=== PATIENT | male | born 2000 | race Caucasian/White ===

== ENCOUNTER 2022-09-24 21:25 | Emergency (ER) | payer MEDICAID ==
[~2022-09-24] VITALS: Ht 195.6 cm; Wt 100.0 kg
[2022-09-24 21:50] VITALS: BP 121/63
--- NOTE | 2022-09-24 22:22 | NUR ---
pts. girlfriends number is [phone]. pt does not have his phone anymore.
== END 2022-09-25 01:16 | disposition left against medical advice (07) ==
LOC: ER 21:26
DX: T14.8XXA Other injury of unspecified body region, initial encounter (principal); Z53.21 Procedure and treatment not carried out due to patient leaving prior to being seen by health care provider; X58.XXXA Exposure to other specified factors, initial encounter; Y93.89 Activity, other specified; Y92.89 Other specified places as the place of occurrence of the external cause; Y99.8 Other external cause status

== ENCOUNTER 2023-05-06 | Emergency (ER) | payer MEDICAID ==
[~2023-05-06] VITALS: Ht 182.9 cm; Wt 104.5 kg
[2023-05-06 00:16] VITALS: BP 118/78; PULSE 114; RESP 14; O2SAT 99
--- NOTE | 2023-05-06 01:48 | NUR ---
nazario had him in the [facility] for quit awhile but he wont void
[2023-05-06 01:50] LABS: BASOPHILS # (AUTO) 0.1 X10'3 (0-0.2); BASOPHILS % (AUTO) 0.9 % (0-1); EOSINOPHILS # (AUTO) 0.9 X10'3 (0-0.9); EOSINOPHILS % (AUTO) 7.9 % (0-6); HEMATOCRIT 41.6 % (42.0-52.0); LYMPHOCYTES # (AUTO) 2.9 X10'3 (1.1-4.8); MEAN CORPUSCULAR HEMOGLOBIN 31.7 PG (27.0-31.0); MEAN CORPUSCULAR HGB CONC 33.7 g/dL (33.0-36.5); MEAN CORPUSCULAR VOLUME 93.9 FL (78-98); MEAN PLATELET VOLUME 6.5 FL (7.4-10.4); MONOCYTES % (AUTO) 9.1 % (2-12); NEUTROPHILS # (AUTO) 6.5 X10'3 (1.8-7.7); NEUTROPHILS % (AUTO) 57.1 % (42-75); PLATELET COUNT 268 X10'3 (140-440); RED BLOOD COUNT 4.43 X10'6 (4.70-6.10); RED CELL DISTRIBUTION WIDTH 13.1 % (11.5-14.5); WHITE BLOOD COUNT 11.4 X10'3 (4.5-11.0)
[2023-05-06 01:54] LABS: ALANINE AMINOTRANSFERASE 59 U/L (12-78); ALBUMIN 3.8 G/DL (3.4-5.0); ALKALINE PHOSPHATASE 80 IU/L (46-116); ANION GAP 8 (8-16); ASPARTATE AMINO TRANSFERASE 31 U/L (10-37); BILIRUBIN,TOTAL 0.3 MG/DL (0.1-1.0); BLOOD UREA NITROGEN 20 MG/DL (7-18); BUN/CREATININE RATIO 16.7 (10.0-20.0); CALCIUM 9.3 MG/DL (8.5-10.1); CHLORIDE 104 MMOL/L (99-107); ETHANOL < 10 MG/DL (<10); GLUCOSE 90 MG/DL (70-104); SALICYLATE 2.2 MG/DL (4.0-20.0); SODIUM 143 MMOL/L (135-145); TOTAL CARBON DIOXIDE 31.3 MMOL/L (24-32); TOTAL PROTEIN 7.5 G/DL (6.4-8.2); eCRCL 106 ML/MIN; eGFR 76 ML/MIN
[2023-05-06 02:06] LABS: POTASSIUM 3.8 MMOL/L (3.5-5.1)
[2023-05-06 02:07] LABS: ACETAMINOPHEN < 2.0 UG/ML (10-30)
[2023-05-06 04:15] LABS: URINE AMPHETAMINE SCREEN NEGATIVE (Neg); URINE BARBITUATE SCREEN NEGATIVE (Neg); URINE BENZODIAZEPINES SCREEN POSITIVE (Neg); URINE CANNABINOID SCREEN NEGATIVE (Neg); URINE COCAINE SCREEN NEGATIVE (Neg); URINE METHADONE SCREEN POSITIVE (Neg); URINE OPIATE SCREEN NEGATIVE (Neg); URINE PHENCYCLIDINE SCREEN NEGATIVE (Neg)
== END 2023-05-06 05:29 ==
LOC: ER
DX: T42.4X1A Poisoning by benzodiazepines, accidental (unintentional), initial encounter (principal); Z87.442 Personal history of urinary calculi; Y92.89 Other specified places as the place of occurrence of the external cause
CPT/HCPCS: 36415; 80053; 80305; 80320; 80329; 85025; 93005; 99284